=== PATIENT | male | born 1955 | race Caucasian/White ===

== ENCOUNTER 2020-06-10 10:30 | Emergency (ER) | payer MEDICARE, MEDICAID ==
[~2020-06-10] VITALS: Ht 182.9 cm; Wt 81.6 kg
--- NOTE | 2020-06-10 10:45 | NUR ---
bib self c/o worsening bilat foot pain/ numbness 11/21. vs checked. awaiting md patrick
[2020-06-10] MEDS ORDERED: KETOROLAC TROMETHAMINE INJ 30 MG/ML VIAL IM ONE (11:00)
[2020-06-10] MEDS ORDERED: KETOROLAC TROMETHAMINE INJ 30 MG/ML VIAL ONE (11:05)
--- NOTE | 2020-06-10 12:41 | NUR ---
Patient discharged to home in stable condition. Written and verbal after care instructions given. Patient verbalizes understanding of instruction.
[2020-06-10 12:43] VITALS: BP 135/94
== END 2020-06-10 12:44 | disposition home or self-care (01) ==
LOC: ER 10:34
DX: M79.672 Pain in left foot (principal); M79.671 Pain in right foot; L03.032 Cellulitis of left toe; I10 Essential (primary) hypertension; F17.200 Nicotine dependence, unspecified, uncomplicated
CPT/HCPCS: 73630; 96372; 99283; J1885